=== PATIENT | female | born 1950 | race Caucasian/White ===

== ENCOUNTER → 2016-07-15 | Outpatient (CLI) | payer OTHER, MEDICARE ==
--- NOTE | 2016-07-15 14:00 | MA ---
Diagnostic Digital Mammogram With iCAD Analysis Clinical Indications: Evaluate palpable area in the left breast in a 66-year-old female with a person al history of right breast cancer treated with lumpectomy. Technique: Standard cephalocaudal projections are obtained. Digital breast tomosynthesis was performe d in the MLO projection with reconstruction at 1.0 mm slice thickness and composite MLO views reconst ructed. This examination is processed by the iCAD computer-aided detection system. Comparison: August 2015, July 2014, June 2013, July 2012, July 2011, April 2010, Apr. Breast Density: Type D: Extremely dense. Findings: CAD was reviewed. In the anterior central subareolar left breast there is a spiculated opac ity which correlates to the palpable area. Asymmetry at the right breast lumpectomy site is stable. N o suspicious microcalcifications are identified. Impression: Palpable abnormality in the left breast associated with a spiculated opacity requires fur ther evaluation, BI-RADS 0.. Recommendation: Targeted left breast ultrasound which will be subsequently performed today. [facility] will send a result letter to the patient.
--- NOTE | 2016-07-15 16:08 | US ---
Left Breast Ultrasound History: Follow-up spiculated mass identified on tomography performed earlier today which correlates to palpable region identified by the patient. Technique: Longitudinal and transverse images were obtained utilizing a 15 MHz transducer. Color Dop pler evaluation is employed for assessment of vascularity. Study is interpreted in conjunction with d iagnostic mammography performed earlier today. Findings: The palpable area beneath the left nipple is identified on physical examination. Sonographi c interrogation demonstrates a spiculated hypoechoic mass with prominent posterior acoustic shadowing . The mass measures 1.8 x 1.6 x 1.0 cm and would correlate well with the mammographic abnormality. On physical examination there is a palpable nodular region in the left axilla which corresponds to an a bnormal lymph node measuring 7 x 9 x 13 mm. Impression: Findings highly suspicious for malignancy, BI-RADS 5. Recommendation: Ultrasound-guided biopsy of the left breast mass as well as the enlarged left axillar y lymph node.. Findings and biopsy recommendations were reviewed with the patient in detail. Additionally, a mistyi lashay report was called to Dr. Cross's office and they will fax a request to the [facility] imaging departm ent. Subsequently, the department will contact the patient to schedule the ultrasound biopsy. [facility] will send a result letter to the patient.
== END ==
LOC: FIMAGING 12:58
PROVIDERS: ATTEND Internal Medicine Hematology & Oncology
DX: N63 Unspecified lump in breast (principal)
CPT/HCPCS: 76641; G0204; G0279

== ENCOUNTER → 2016-08-01 | Outpatient (CLI) | payer OTHER, MEDICARE ==
[~2016-08-01] MED LIST: THROMBIN (RECOMBINANT) 5,000 UNIT VIAL TP ONE
== END ==
LOC: FIMAGING 13:30
PROVIDERS: ATTEND Internal Medicine Hematology & Oncology
PROC: 0HBU3ZX Excision of Left Breast, Percutaneous Approach, Diagnostic (ICD-10-PCS; principal; 2016-08-01)
PROC: 07B63ZX Excision of Left Axillary Lymphatic, Percutaneous Approach, Diagnostic (ICD-10-PCS; principal; 2016-08-01)
DX: C50.912 Malignant neoplasm of unspecified site of left female breast (principal); C77.3 Secondary and unspecified malignant neoplasm of axilla and upper limb lymph nodes

== ENCOUNTER → 2016-08-04 | Outpatient (CLI) | payer OTHER, MEDICARE | LOC: FIMAGING 11:41 | PROVIDERS: ATTEND Internal Medicine Hematology & Oncology | DX: Z12.39 Encounter for other screening for malignant neoplasm of breast (principal); Z98.890 Other specified postprocedural states | CPT/HCPCS: G0206 ==

== ENCOUNTER 2016-09-02 07:14 | Observation (INO) | payer OTHER, MEDICARE ==
[~2016-09-02 07:14] MED LIST changes: -THROMBIN (RECOMBINANT) 5,000 UNIT VIAL TP ONE; +VANCOMYCIN HCL/NORMAL SALINE 250 ML IV ONE
[2016-09-02] MEDS ORDERED: LIDOCAINE 1% 5 ML SDV ONE (08:06)
[2016-09-02] MEDS ORDERED: LR 1,000 ML IV ONE (08:15)
[2016-09-02] MEDS ORDERED: LIDOCAINE 1% 5 ML SDV ID PRN (08:15)
[2016-09-02] MEDS ORDERED: IBUPROFEN 800 MG TAB PO PRN (09:09)
[2016-09-02] MEDS ORDERED: ONDANSETRON DISINTEGRATING 4 MG TAB PO PRN (09:09)
[2016-09-02] MEDS ORDERED: diphenhydrAMINE 25 MG CAP PO PRN (09:09)
[2016-09-02] MEDS ORDERED: HYDROCODONE/APAP 5/325 TAB PO PRN (09:09)
[2016-09-02] MEDS ORDERED: ACETAMINOPHEN 325 MG TAB PO PRN (09:09)
[2016-09-02] MEDS ORDERED: ONDANSETRON 4 MG/2 ML VIAL IVP PRN (09:09)
[2016-09-02] MEDS ORDERED: HYDROmorphONE/DILAUDID 1 MG/ML SYR IVP PRN (09:10)
[2016-09-02] MEDS ORDERED: NS 1,000 ML IV SCH (09:15)
[2016-09-02] MEDS ORDERED: IBUPROFEN 600 MG TAB PO PRN (09:37)
[2016-09-02] MEDS ORDERED: fentaNYL 250 MCG/5 ML INJ ONE (11:04)
[2016-09-02] MEDS ORDERED: PROPOFOL/EMULSION 500 MG/50 ML BOTTLE IV ONE (11:04)
[2016-09-02] MEDS ORDERED: MIDAZOLAM 2 MG/2 ML VIAL ONE (11:05)
[2016-09-02] MEDS ORDERED: THROMBIN (RECOMBINANT) 20,000 UNIT SPRAY TP ONE (11:22)
[2016-09-02] MEDS ORDERED: BUPIVACAINE 0.5% 30 ML SDV ONE (11:23)
[2016-09-02] MEDS ORDERED: fentaNYL 100 MCG/2 ML INJ ONE (13:24)
[2016-09-02 17:17] VITALS: RESP 16
[2016-09-03] MEDS ORDERED: ENOXAPARIN 40 MG/0.4 ML SYR SC SCH (09:00)
[2016-09-03 12:19] VITALS: BP 111/66
--- NOTE | 2016-09-03 14:52 | GOP ---
[f rep st] OPERATIVE REPORT DATE OF OPERATION: 09/02/2016 SURGEON: Neha Rivas MD ATLASSIAN ADMINISTRATOR: DIANA Tilley ANESTHESIA: General. 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 POSTOPERATIVE DIAGNOSIS: Left breast upper outer invasive ductal carcinoma. PROCEDURE PERFORMED: Bilateral mastectomy with left axillary dissection. FINDINGS: Multiple firm lymph nodes. Each breast was marked short superior, long lateral. SPECIMENS: Right breast short superior, long lateral. Left breast short superior, long lateral. Left axillary contents. ESTIMATED BLOOD LOSS: 50 cc. INDICATIONS: The patient is a 66-year-old woman, who I previously performed a right upper outer lumpectomy and sentinel lymph node. She then developed a new breast cancer in the left breast. She had a positive axillary node on biopsy. She had a variant of uncertain significance on the CHEK2 gene. Her family history is unknown since she is adopted. DESCRIPTION OF PROCEDURE: The patient was brought into the operating room, placed supine on the table, and general anesthesia was administered. Her bilateral chest, neck and axilla were prepped and draped in the usual sterile fashion. I infiltrated all sites with 0.5% Marcaine prior to making incisions. I started on the right side and made an ellipse around the nipple areola complex. I created superior and inferior skin flaps. My dissection occurred to the clavicle, sternum, inframammary fold, and right axillary line. The breast was removed including the pectoralis fascia. It was marked short superior, long lateral. Hemostasis was achieved. On the right side, a 15 round channel drain was also placed under the skin flap and sutured in place with 3-0 nylon. The wound was closed with 3-0 Vicryl followed by 4-0 Monocryl. On the left side, again I made an ellipse around the nipple areolar complex. My dissection occurred superior to the clavicle, medial to the sternum, inferior to the inframammary fold, and lateral to the mid axillary line. The breast was removed including the pectoralis fascia. It was marked short superior, long lateral and sent to Pathology for fresh. I then used the sentinel lymph node probe to identify the sentinel node. Superficially, she had very firm matted nodes. I excised these. I then was able to palpate better into her axillary space and there were other several firm nodes. All of these were excised. I protected the long thoracic nerve and thoracodorsal nerve. A drain was placed under the skin flaps and sutured into place with 2-0 nylon. A second drain was placed in the axilla and sutured into place with Nylon. The left breast was closed with 3-0 Vicryl followed by 4-0 Monocryl. Mastisol, Steri-Strips, and sterile dressings were applied. She was awakened in the operating room, extubated and transferred to PACU in stable condition. /[id number]/MODL MTDD
[2016-09-03 16:15] VITALS: PULSE 97; TEMP 97.7; O2SAT 96
--- NOTE | 2016-09-03 16:33 | SOAPPROG ---
SOAP Progress Note Assessment/Plan: Assessment: WOUNDS LOOK GOOD WITH DRESSINGS DRY AND INTACT / MINIMAL PAIN / MODERATE OPAL DRAINAGE / AFEBRILE / PATH PENDING / NO NEW LABS Plan: HOME TODAY WITH DRAINS IN PLACE / OFFICE NEXT WEEK FOR DRAIN REMOVAL 09/03/16 16:31 Objective: Vital Signs Temp Pulse Resp BP Pulse Ox 36.5 C 97 16 111/66 96 09/03/16 16:13 09/03/16 16:13 09/03/16 16:13 09/03/16 12:17 09/03/16 16:13 09/02/16 09/03/16 09/04/16 05:59 05:59 05:59 Intake Total 3600 Output Total 305 115 Balance 3295 -115 ICD10 Worksheet Patient Problems: Problems Problem Status Onset Breast cancer Acute - ICD10 Problem Qualifiers (1) Breast cancer Qualifiers: Breast location: B Patient sex: P Laterality: L
== END 2016-09-03 17:20 | disposition home or self-care (01) ==
LOC: F3E 07:14 → F1N 14:00
PROVIDERS: ADMIT Surgery; ATTEND Surgery
PROC: 07B60ZX Excision of Left Axillary Lymphatic, Open Approach, Diagnostic (ICD-10-PCS; principal; 2016-09-02 11:10)
PROC: 0HTV0ZZ Resection of Bilateral Breast, Open Approach (ICD-10-PCS; principal; 2016-09-02 11:10)
PROC: C71M1ZZ Planar Nuclear Medicine Imaging of Trunk Lymphatics using Technetium 99m (Tc-99m) (ICD-10-PCS; principal; 2016-09-02 11:10)
DX: C50.012 Malignant neoplasm of nipple and areola, left female breast (principal); E78.5 Hyperlipidemia, unspecified; I10 Essential (primary) hypertension; E55.9 Vitamin D deficiency, unspecified; Z17.0 Estrogen receptor positive status [ER+]
CPT/HCPCS: 19307; 78195; A9520; J1650; J2250; J2704; J3010

== ENCOUNTER 2016-09-23 07:18 | Day surgery (SDC) | payer OTHER, MEDICARE ==
--- NOTE | 2016-09-21 17:58 | GHP ---
[f rep st] PREOP HISTORY AND PHYSICAL CHIEF COMPLAINT: Left breast cancer. HISTORY OF PRESENT ILLNESS: The patient is a 66-year-old woman who previously underwent right lumpe ctomy with sentinel lymph node biopsy on 08/18/11 for a T1a N0 right breast invasive ductal carcinoma, followed by APBI and anastrozole x6 months. She then developed a painful nodule of her left breast , which was found to be an invasive ductal carcinoma. She was taken to the operating room on 7 for bilateral mastectomies with left sentinel lymph node biopsy. The final pathology revealed a 3 cm invasive ductal carcinoma grade 2, with a 2nd subareolar focus of invasive ductal carcinoma, 1 c m, [place] grade 2. There were 29 out of 54 lymph nodes positive for metastatic carcinoma, final stage T2 N3a. She will require chemotherapy. She presents for a port placement for easier IV acce ss for chemotherapy. PAST MEDICAL HISTORY: Breast cancer as above. Hyperlipidemia. Hypertension. Infectious mononucle osis at age 40. Osteopenia. Rotator cuff tendinitis. Herpes zoster in 2001. 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 Vitamin D deficiency. PAST SURGICAL HISTORY: Bilateral mastectomies. Right lumpectomy. Tonsillectomy and adenoidectomy. ALLERGIES: Cephalexin. SOCIAL HISTORY: She is . She denies tobacco or recreational drug use. She reports daily al cohol consumption. FAMILY HISTORY: Unknown, as she is adopted. PHYSICAL EXAMINATION: GENERAL: Well-developed, well-nourished, woman in no acute distress. HEENT: Normocephalic, atraumatic. No hearing deficits. Pupils equal and round. No scleral icterus. Mu cous membranes moist. NECK: Trachea midline. RESPIRATORY: No increased work of breathing. Clear to auscultation bilaterally. CARDIOVASCULAR: Regular rate and rhythm. No peripheral edema. CHES T: Bilateral mastectomy incisions clean, dry and intact, without evidence of infection. SKIN: War m and dry. MUSCULOSKELETAL: Normal gait, normal nails. PSYCH: Mood and affect normal. IMPRESSION AND PLAN: The patient is a 66-year-old woman, status post bilateral mastectomies with a T2 N3a malignancy of the left breast. She will require a port for chemotherapy. We discussed risks of surgery, including but not limited to heart attack, stroke, blood clots, or . We discussed risks of infection, bleeding, pneumothorax, or need for device removal if this becomes infected. S he understands the risks and would like to proceed. Additionally seen by Dr. Neha Rivas, who agrees with the above impression and plan. /[id number]/MODL
[2016-09-23] MEDS ORDERED: LR 1,000 ML IV ONE (08:01)
[2016-09-23] MEDS ORDERED: LIDOCAINE 1% 5 ML SDV ID PRN (08:01)
[2016-09-23] MEDS ORDERED: fentaNYL 100 MCG/2 ML INJ ONE (08:08)
[2016-09-23] MEDS ORDERED: PROPOFOL 200 MG/20 ML VIAL ONE (08:09)
[2016-09-23] MEDS ORDERED: BUPIVACAINE 0.5% 30 ML SDV ONE (09:25)
--- NOTE | 2016-09-23 11:28 | GOP ---
[f rep st] OPERATIVE REPORT DATE OF OPERATION: 09/23/2016 SURGEON: Neha Rivas MD ANESTHESIOLOGIST: Dr. Abbasi. PREOPERATIVE DIAGNOSIS: Locally invasive left breast cancer. POSTOPERATIVE DIAGNOSIS: Locally invasive left breast cancer. PROCEDURE PERFORMED: Right subclavian power port placement. FINDINGS: Tip in SVC RA junction. SPECIMENS: None. ESTIMATED BLOOD LOSS: 10 cc. INDICATIONS: The patient is a 66-year-old woman who has a history of right breast cancer. She then developed left breast cancer and has many positive lymph nodes. She will require chemotherapy. DESCRIPTION OF PROCEDURE: Ariadna was brought into the operating room and placed supine on the table , and general anesthesia was administered. Her bilateral neck and chest were prepped and draped in the usual sterile fashion. She was placed in the Trendelenburg position. I infiltrated her chest w ith 10 cc of 0.5% Marcaine and I accessed the right subclavian vein with dark return of blood flow o n the first attempt. I threaded the guidewire and removed the needle. Placement was confirmed with fluoroscopy. I created a pocket to accommodate the port in the right chest. I tunneled this up to the insertion site. Under fluoroscopy, I measured the catheter and cut it to size under fluoroscop y and using the Seldinger technique, I placed a dilator and sheath over the wire. I removed the wir e and the dilator. I threaded the catheter through the sheath and peeled away the sheath. Placemen t was confirmed with fluoroscopy. The port withdrew blood easily and was flushed with heparin. The pocket was closed with 3-0 Vicryl, followed by 4-0 Monocryl. Dermabond applied. She was awakened in the operating room, extubated, transferred to PACU in stable condition. A chest x-ray is pending . /[id number]/MODL
== END 2016-09-23 12:50 | disposition home or self-care (01) ==
LOC: FSGY 07:18
PROVIDERS: ATTEND Surgery
PROC: 02HV33Z Insertion of Infusion Device into Superior Vena Cava, Percutaneous Approach (ICD-10-PCS; principal; 2016-09-23 09:15)
PROC: 0JH60XZ Insertion of Tunneled Vascular Access Device into Chest Subcutaneous Tissue and Fascia, Open Approach (ICD-10-PCS; principal; 2016-09-23 09:15)
DX: Z45.2 Encounter for adjustment and management of vascular access device (principal); C50.911 Malignant neoplasm of unspecified site of right female breast; E78.5 Hyperlipidemia, unspecified; I10 Essential (primary) hypertension; B02.9 Zoster without complications
CPT/HCPCS: C1788; J1642; J2704; J3010; J3370